=== PATIENT | female | born 1950 | race Caucasian/White ===

== ENCOUNTER 2020-01-25 05:13 | Inpatient (IN) | payer MEDICARE, OTHER ==
[2020-01-16 15:34] LABS: EOSINOPHILS # (AUTO) 0.1 X10'3 (0-0.9); EOSINOPHILS % (AUTO) 2.6 % (0-6); LYMPHOCYTES # (AUTO) 1.4 X10'3 (1.1-4.8); MEAN CORPUSCULAR HEMOGLOBIN 34.2 PG (27.0-31.0); MEAN CORPUSCULAR HGB CONC 35.6 g/dL (33.0-36.5); MEAN CORPUSCULAR VOLUME 96.1 FL (78-98); MEAN PLATELET VOLUME 7.2 FL (7.4-10.4); MONOCYTES # (AUTO) 0.4 X10'3 (0-0.9); MONOCYTES % (AUTO) 8.2 % (2-12); NEUTROPHILS # (AUTO) 2.5 X10'3 (1.8-7.7); NEUTROPHILS % (AUTO) 57.2 % (42-75); PRE OP HEMATOCRIT 43.2 % (35.0-45.0); PRE OP HEMOGLOBIN 15.4 g/dL (12.0-16.0); PRE OP PLATELET COUNT 206 X10'3 (140-440); RED CELL DISTRIBUTION WIDTH 13.2 % (11.5-14.5)
[2020-01-16 15:59] LABS: ALBUMIN 3.7 G/DL (3.4-5.0); ALBUMIN/GLOBULIN RATIO 1.2 (1.1-1.5); ALKALINE PHOSPHATASE 85 IU/L (46-116); BLOOD UREA NITROGEN 13 MG/DL (7-18); BUN/CREATININE RATIO 15.5 (6.6-38.0); CALCIUM 8.6 MG/DL (8.5-10.1); CHLORIDE 106 MMOL/L (99-107); CREATININE 0.84 MG/DL (0.40-0.90); PRE OP ALT 55 U/L (30-65); PRE OP ANION GAP 5 (8-16); PRE OP AST 40 U/L (10-37); PRE OP BILIRUB, TOTAL 1.1 MG/DL (0.0-1.0); PRE OP GLUCOSE 147 MG/DL (70-104); PRE OP SODIUM 144 MMOL/L (135-145); TOTAL CARBON DIOXIDE 33.3 MMOL/L (24-32); TOTAL PROTEIN 6.7 G/DL (6.4-8.2); eGFR 67 ML/MIN
[2020-01-16 16:02] LABS: PRE OP POTASSIUM 3.2 MMOL/L (3.4-5.1)
[2020-01-25] VITALS (17 sets, daily range): BP systolic 107–136; BP diastolic 53–71
[~2020-01-25] VITALS: Ht 157.5 cm; Wt 80.0 kg
[~2020-01-25 05:13] MED LIST: AMLO2.5T2 PO; ASPI-1265 PO; ATEN25TA PO; CALC500T11 PO; CELE-193 PO; CHOL50004 PO; HCTZ25T PO; LEVO75TA PO; MULT-1180 PO; OMEG-133 PO; OMEP20TA5 PO; OXYC-150 PO; PRAM0.5T3 PO; SUVO5TAB PO; TRAZ-251 PO; ringers solution, lacted 1,000 ML IV SCH
[2020-01-25] MEDS ORDERED: tranexamic acid inj. 800 MG in normal saline 100ml IV soln 100 ML IV ONE ×5 (05:30→13:30)
[2020-01-25] MEDS ORDERED: famotidine 20mg tablet PO ONE (05:30)
[2020-01-25] MEDS ORDERED: DOCUMENT DATE & TIME OF BETA-BLOCKER PO ONE (05:30)
[2020-01-25] MEDS ORDERED: cefazolin/dext.iso 2gm/50ml 50 ML IV ONE (05:30)
[2020-01-25] MEDS ORDERED: vancomycin inj 1,500 MG in normal saline 300ml IV soln IV ONE (05:30)
[2020-01-25] MEDS ORDERED: LIDOcaine 1% (10mg/ml) 2ml vial ONE (05:44)
[2020-01-25] MEDS ORDERED: ROPIVAcaine 0.5% (5mg/ml) 30ml vial ONE ×2 (07:12→08:38)
[2020-01-25] MEDS ORDERED: dexamethasone sod phosphate 10mg/ml inj ONE (07:55)
[2020-01-25] MEDS ORDERED: sevoflurane 250ml liquid IH ONE (07:55)
[2020-01-25] MEDS ORDERED: ondansetron/PF 4mg/2ml inj ONE (07:55)
[2020-01-25] MEDS ORDERED: fentaNYL/PF 50MCG/1 ML 2ML syringe ONE (07:56)
[2020-01-25] MEDS ORDERED: midazolam 2 mg/2 ml injection ONE (07:56)
[2020-01-25] MEDS ORDERED: succinylcholine 20mg/ml inj IV ONE (08:38)
[2020-01-25] MEDS ORDERED: LIDOcaine 2% (20mg/ml) 5ml vial ONE (08:38)
[2020-01-25] MEDS ORDERED: propofol inj 20 ML IV ONE (08:38)
[2020-01-25] MEDS ORDERED: ketorolac trometh. 30mg/ml inj. ONE (08:49)
[2020-01-25] MEDS ORDERED: ringers solution, lacted 1,000 ML IV SCH (09:12)
[2020-01-25] MEDS ORDERED: ROPIVAcaine 0.2%/PF PUMP/bolus 550 ML INTERSCALE SCH (09:12)
[2020-01-25] MEDS ORDERED: fentaNYL/PF 50MCG/1 ML 2ML syringe IV PRN ×2 (09:15)
[2020-01-25] MEDS ORDERED: morphine 4 MG/ML inj SYRINge IV PRN (09:15)
[2020-01-25] MEDS ORDERED: hydrALAZINE 20mg/ml inj. IV PRN (09:15)
[2020-01-25] MEDS ORDERED: enalaprilat dihydrate 2.5mg/2ml vial IV PRN (09:15)
[2020-01-25] MEDS ORDERED: morphine 2 MG/ML inj. syringe IV PRN (09:15)
[2020-01-25] MEDS ORDERED: ondansetron/PF 4mg/2ml inj IV PRN ×2 (09:15→10:30)
[2020-01-25] MEDS ORDERED: ROPIVAcaine 0.2% (10 MG/5 ML) BOLUS INJECTION INTERSCALE PRN (09:15)
[2020-01-25] MEDS ORDERED: ePHEDrine 50MG/ML INJ. ONE (09:48)
--- NOTE | 2020-01-25 10:12 | NUR ---
Received from OR via BED , accompanied by Anesthesiologist DR HERNANDEZ and report given by Anesthesiologist. PT AWAKES TO COMMAND. VSS. LEFT SHOULDER DSG CDI WITH SLING AND ICE PRESENT. BLOCK TO NAVID WITH GOOD RADIAL PULSE PRESENT, TRUCK TRAILER FINAL INSPECTOR WNL, UNABLE TO MOVE FINGERS. IV PATENT RIGHT FA #[id number]. SCD'S APPLIED. WARMING MEASURES INITIATED. Addendum: 01/25/20 at 1034 by Cara Noel RN Amended: Links added.
[2020-01-25] MEDS ORDERED: potassium cl 20mEq in 1/2 NS 1,000 ML IV SCH (10:27)
[2020-01-25] MEDS ORDERED: diphenhydrAMINE 25mg capsule PO PRN ×2 (10:30)
[2020-01-25] MEDS ORDERED: HYDROmorphone inj. 0.5 MG/0.5 ML DISP.SYRIN IV PRN (10:30)
[2020-01-25] MEDS ORDERED: acetaminophen 325mg tablet PO PRN (10:30)
[2020-01-25] MEDS ORDERED: oxyCODONE IR 5mg (immed. release) tablet PO PRN (10:30)
[2020-01-25] MEDS ORDERED: magnesium hydroxide 30ml (MOM) UD suspension PO PRN (10:30)
[2020-01-25] MEDS ORDERED: bisacodyl 10mg suppository rectal RC PRN (10:30)
--- NOTE | 2020-01-25 11:02 | NUR ---
Patient in room PAS IN 900. I have received report from Cara in recovery and had the opportunity to ask questions and assume patient care.
--- NOTE | 2020-01-25 11:02 | NUR ---
VSS. DENIES PAIN. LUE BLOCK INTACT WITH STRONG RADIAL PULSES AND INTERNAL CORROSION SPECIALIST WNL. UNABLE TO MOVE LUE AT THIS TIME. ON-Q INITIATED. REPORT GIVEN TO VALDEZ TORRES. PT TRANSPORTED TO [facility] [place] VIA BED WITH PERSONAL BELONGINGS AND FAMILY PRESENT. NR PRESENT TO RECEIVE PT IN . Addendum: 01/25/20 at 1116 by Cara Noel RN Amended: Links added.
[2020-01-25] MEDS: SUVOREXANT PO SCH ×2 (11:10→21:00)
--- NOTE | 2020-01-25 12:02 | NUR ---
Problems reprioritized. Patient report given, questions answered & plan of care reviewed with La.
[2020-01-25] MEDS: pramipexole 0.25mg tablet PO SCH ×2 (13:08→20:09)
[2020-01-25] MEDS: acetaminophen 325mg tablet PO SCH ×2 (13:33→20:07)
[2020-01-25] MEDS: ceFAZolin 1GM/D5W- ADD-VANTAGE 50 ML IV SCH ×2 (16:58→23:58)
[2020-01-25] MEDS ORDERED: vancomycin/NS 1 GM ADD-VANTAGE 250 ML IV SCH (20:00)
[2020-01-25] MEDS: amLODIPine 5mg tablet PO SCH (20:08)
[2020-01-25] MEDS: calcium carbonate 500mg chew tablet PO SCH (20:08)
[2020-01-25] MEDS ORDERED: sennosides 8.6mg tablet PO SCH (21:00)
[2020-01-25] MEDS ORDERED: traZODone 50mg tablet PO SCH (21:00)
[2020-01-25] MEDS: oxyCODONE IR 5mg (immed. release) tablet PO PRN (23:38)
[2020-01-26] MEDS: HYDROmorphone 1 mg/ml syringe IV PRN ×2 (00:30→06:49)
[2020-01-26 02:00] VITALS: BP 124/61
[2020-01-26] MEDS: calcium carbonate 500mg chew tablet PO SCH (02:39)
[2020-01-26] MEDS: acetaminophen 325mg tablet PO SCH ×2 (02:44→08:37)
[2020-01-26] MEDS: oxyCODONE IR 5mg (immed. release) tablet PO PRN ×2 (05:37→09:15)
[2020-01-26 06:10] VITALS: BP 144/71
[2020-01-26 06:30] LABS: BASOPHILS % (AUTO) 0.5 % (0-1); EOSINOPHILS # (AUTO) 0.1 X10'3 (0-0.9); EOSINOPHILS % (AUTO) 1.7 % (0-6); HEMATOCRIT 40.5 % (35.0-45.0); HEMOGLOBIN 14.3 g/dl (12.0-16.0); LYMPHOCYTES # (AUTO) 0.9 X10'3 (1.1-4.8); LYMPHOCYTES % (AUTO) 17.5 % (21-51); MEAN CORPUSCULAR HEMOGLOBIN 34.3 PG (27.0-31.0); MEAN CORPUSCULAR HGB CONC 35.3 g/dL (33.0-36.5); MEAN PLATELET VOLUME 7.6 FL (7.4-10.4); MONOCYTES # (AUTO) 0.4 X10'3 (0-0.9); MONOCYTES % (AUTO) 7.6 % (2-12); NEUTROPHILS # (AUTO) 3.7 X10'3 (1.8-7.7); NEUTROPHILS % (AUTO) 72.7 % (42-75); PLATELET COUNT 164 X10'3 (140-440); RED BLOOD COUNT 4.17 X10'6 (4.20-5.60); RED CELL DISTRIBUTION WIDTH 13.4 % (11.5-14.5); WHITE BLOOD COUNT 5.1 X10'3 (4.5-11.0)
--- NOTE | 2020-01-26 06:40 | NUR ---
Problems reprioritized. Patient report given, questions answered & plan of care reviewed with Jaci TORRES.
--- NOTE | 2020-01-26 06:41 | NUR ---
REPORT TO ADOLPH TORRES
[2020-01-26 06:55] LABS: ANION GAP 9 (8-16); CHLORIDE 109 MMOL/L (99-107); POTASSIUM 3.9 MMOL/L (3.5-5.1); SODIUM 143 MMOL/L (135-145); TOTAL CARBON DIOXIDE 25.4 MMOL/L (24-32)
[2020-01-26] MEDS ORDERED: levoTHYROXINE 100mcg tablet PO SCH (07:00)
[2020-01-26 07:34] VITALS: BP 144/71
--- NOTE | 2020-01-26 07:36 | NUR ---
I received from from Ashley TORRES
[2020-01-26] MEDS ORDERED: atenolol 25mg tablet PO SCH (08:00)
[2020-01-26] MEDS ORDERED: FISH OIL PO SCH (08:00)
[2020-01-26] MEDS ORDERED: EPA PO SCH (08:00)
[2020-01-26] MEDS ORDERED: OMEGA PO SCH (08:00)
[2020-01-26] MEDS ORDERED: multivitamins, therapeutics tablet PO SCH (08:00)
[2020-01-26] MEDS ORDERED: celeCOXIB 100mg capsule PO SCH (08:00)
[2020-01-26] MEDS ORDERED: HYDROchlorothiazide 25mg tablet PO SCH (08:00)
[2020-01-26] MEDS ORDERED: pantoprazole 40mg Tablet.DR PO SCH (08:00)
[2020-01-26] MEDS ORDERED: aspirin 81mg tab.chew PO SCH (08:00)
[2020-01-26] MEDS ORDERED: DHA PO SCH (08:00)
[2020-01-26] MEDS ORDERED: aspirin 325mg tablet PO SCH (08:30)
[2020-01-26] MEDS: pramipexole 0.25mg tablet PO SCH (08:34)
[2020-01-26] MEDS: amLODIPine 5mg tablet PO SCH (08:37)
[2020-01-26] MEDS ORDERED: calcium carbonate 500mg chew tablet PO SCH (08:45)
[2020-01-26 09:48] VITALS: BP 159/78
[2020-01-27] MEDS ORDERED: acetaminophen 325mg tablet PO PRN (10:30)
== END 2020-01-26 13:30 | disposition home or self-care (01) | DRG 483 ==
LOC: PAS IN 05:13 → UNDOADMIN 05:13 → EDSTATUS 08:45 → PAS IN 10:27 → ORTHO 4S 11:05 → UNDODISIN 01-26 13:30
PROVIDERS: ADMIT Orthopaedic Surgery; ATTEND Orthopaedic Surgery
PROC: 0LS40ZZ Reposition Left Upper Arm Tendon, Open Approach (ICD-10-PCS; 2020-01-25)
PROC: 3E0T3BZ Introduction of Anesthetic Agent into Peripheral Nerves and Plexi, Percutaneous Approach (ICD-10-PCS; 2020-01-25)
PROC: 0RRK00Z Replacement of Left Shoulder Joint with Reverse Ball and Socket Synthetic Substitute, Open Approach (ICD-10-PCS; principal; 2020-01-25 07:55)
DX: M75.122 Complete rotator cuff tear or rupture of left shoulder, not specified as traumatic (principal); M19.012 Primary osteoarthritis, left shoulder; K21.9 Gastro-esophageal reflux disease without esophagitis; E03.9 Hypothyroidism, unspecified; I25.10 Atherosclerotic heart disease of native coronary artery without angina pectoris; E66.9 Obesity, unspecified; I10 Essential (primary) hypertension; M65.812 Other synovitis and tenosynovitis, left shoulder; Z87.891 Personal history of nicotine dependence; Z72.89 Other problems related to lifestyle; Z68.32 Body mass index [BMI] 32.0-32.9, adult; Z79.899 Other long term (current) drug therapy; Z79.82 Long term (current) use of aspirin
CPT/HCPCS: 36415; 71046; 80051; 80053; 82948; 84443; 85025; 87081; 97116; 97161; 97530; A4215; A4565; A4618; A7000; C1776; G0378; J0330; J0690; J1100; J1170; J1885; J2001; J2250; J2405; J2704; J2795; J3010; J3370; J3480; J7120; Q0163

== ENCOUNTER 2022-12-15 12:48 | Day surgery (SDC) | payer MEDICARE, BC ==
[2022-12-15] VITALS (11 sets, daily range): BP systolic 109–156; BP diastolic 49–91
[~2022-12-15] VITALS: Ht 157.5 cm; Wt 75.3 kg
[~2022-12-15 12:48] MED LIST changes: -HCTZ25T PO; +HYDR25TA5 PO; +OMEP20TA43 PO; -OMEP20TA5 PO; -ringers solution, lacted 1,000 ML IV SCH
[2022-12-15] MEDS ORDERED: diphenhydrAMINE 25mg capsule PO PRN (13:10)
[2022-12-15] MEDS ORDERED: LORazepam 0.5 MG tablet PO PRN (13:10)
[2022-12-15] MEDS ORDERED: nitroGLYCERIN 0.4mg SUBLingual tab SL PRN (13:10)
[2022-12-15] MEDS ORDERED: normal saline 1,000 ML IV SCH (13:10)
[2022-12-15] MEDS ORDERED: fentaNYL/PF 50MCG/1 ML 2ML syringe ONE ×2 (13:12→14:16)
[2022-12-15] MEDS ORDERED: midazolam 1 mg/ML 2ml injection ONE ×2 (13:12→14:12)
[2022-12-15] MEDS ORDERED: iohexol 350 MG/ML 50ML vial IV ONE (13:12)
[2022-12-15] MEDS ORDERED: iohexol 350MG/ML 100ml bottle IV ONE (13:12)
[2022-12-15] MEDS ORDERED: LIDOcaine 1% 30ml preserv. free vial ONE (13:12)
[2022-12-15] MEDS ORDERED: TRIA1CAP88 PO (13:24)
[2022-12-15] MEDS ORDERED: LEVO112T52 PO (13:24)
[2022-12-15] MEDS ORDERED: CHOL50004 PO (13:24)
[2022-12-15] MEDS ORDERED: VITA1CAP (13:27)
[2022-12-15] MEDS ORDERED: DOCU100C59 PO (13:27)
[2022-12-15] MEDS ORDERED: MAGN400C PO (13:27)
[2022-12-15] MEDS ORDERED: NITR0.4T48 SL (13:27)
[2022-12-15 14:24] LABS: ANION GAP 5 (8-16); BASOPHILS % (AUTO) 0.7 % (0-1); BLOOD UREA NITROGEN 15 MG/DL (7-18); BUN/CREATININE RATIO 17.4 (6.6-38.0); CALCIUM 8.6 MG/DL (8.5-10.1); CHLORIDE 102 MMOL/L (99-107); CREATININE 0.86 MG/DL (0.40-0.90); EOSINOPHILS % (AUTO) 0.2 % (0-6); GLUCOSE 103 MG/DL (70-104); HEMATOCRIT 44.1 % (35.0-45.0); HEMOGLOBIN 15.7 g/dl (12.0-16.0); LYMPHOCYTES # (AUTO) 1.7 X10'3 (1.1-4.8); LYMPHOCYTES % (AUTO) 38.9 % (21-51); MEAN CORPUSCULAR HEMOGLOBIN 36.1 PG (27.0-31.0); MEAN CORPUSCULAR HGB CONC 35.7 g/dL (33.0-36.5); MEAN CORPUSCULAR VOLUME 101.1 FL (78-98); MEAN PLATELET VOLUME 7.3 FL (7.4-10.4); MONOCYTES # (AUTO) 0.3 X10'3 (0-0.9); NEUTROPHILS # (AUTO) 2.3 X10'3 (1.8-7.7); NEUTROPHILS % (AUTO) 53.2 % (42-75); PLATELET COUNT 186 X10'3 (140-440); POTASSIUM 3.3 MMOL/L (3.5-5.1); RED BLOOD COUNT 4.36 X10'6 (4.20-5.60); RED CELL DISTRIBUTION WIDTH 12.5 % (11.5-14.5); SODIUM 140 MMOL/L (135-145); TOTAL CARBON DIOXIDE 32.7 MMOL/L (24-32); WHITE BLOOD COUNT 4.4 X10'3 (4.5-11.0); eGFR 65 ML/MIN
[2022-12-15 14:27] LABS: APTT 29 SECONDS (22-32)
[2022-12-15] MEDS ORDERED: HYDROcodone/acetaminophen 10/325mg tab PO PRN (15:25)
[2022-12-15] MEDS ORDERED: proCHLORperazine 10 MG/2 ml inj IV PRN (15:25)
[2022-12-15] MEDS ORDERED: HYDROcodone/acetaminophen 5mg/325mg tablet PO PRN (15:25)
[2022-12-15] MEDS ORDERED: OXAZEpam 15mg capsule PO PRN (15:25)
[2022-12-15] MEDS ORDERED: ondansetron/PF 4mg/2ml inj IV PRN (15:25)
[2022-12-15 16:15] LABS: ANISOCYTOSIS FEW; PLATELET ESTIMATE NORMAL; SPHEROCYTES FEW
== END 2022-12-15 20:15 | disposition home or self-care (01) ==
LOC: SSTAY O 12:48
PROVIDERS: ATTEND Internal Medicine Cardiovascular Disease
DX: R94.39 Abnormal result of other cardiovascular function study (principal); I25.10 Atherosclerotic heart disease of native coronary artery without angina pectoris; I10 Essential (primary) hypertension; E78.5 Hyperlipidemia, unspecified; K21.9 Gastro-esophageal reflux disease without esophagitis; G47.33 Obstructive sleep apnea (adult) (pediatric); J44.9 Chronic obstructive pulmonary disease, unspecified; F41.1 Generalized anxiety disorder; G89.4 Chronic pain syndrome; E66.9 Obesity, unspecified; Z68.30 Body mass index [BMI] 30.0-30.9, adult; Z88.8 Allergy status to other drugs, medicaments and biological substances; Z95.5 Presence of coronary angioplasty implant and graft; Z90.710 Acquired absence of both cervix and uterus; Z98.890 Other specified postprocedural states; Z87.891 Personal history of nicotine dependence; Z79.01 Long term (current) use of anticoagulants
CPT/HCPCS: 36415; 71046; 80048; 85025; 85610; 85730; 93458; 99152; 99153; C1760; C1769; J1644; J2250; J3010; J3490; J7030; Q0163; Q9967; 85008; A6258; A6449

== ENCOUNTER 2024-09-12 11:55 | Day surgery (SDC) | payer MEDICARE, BC ==
[~2024-09-12] VITALS: Ht 157.5 cm; Wt 69.2 kg
[2024-09-12] VITALS (10 sets, daily range): BP systolic 112–144; BP diastolic 56–77; PULSE 71–83; RESP 10–12; TEMP 98.2; O2SAT 94–100
[~2024-09-12 11:55] MED LIST changes: -AMLO2.5T2 PO; -ASPI-1265 PO; +ASPI81TA52 PO; -ATEN25TA PO; +ATOR20TA66 PO; -CALC500T11 PO; -CELE-193 PO; -CHOL50004 PO; +CLOP75TA34 PO; -HYDR25TA5 PO; +LEVO112T52 PO; -LEVO75TA PO; +METO-395 PO; +MORP15TA60 PO; -MULT-1180 PO; +NITR0.4T48 SL; -OMEG-133 PO; -OMEP20TA43 PO; -OXYC-150 PO; -SUVO5TAB PO; +VALS1TAB73 PO
[2024-09-12] MEDS ORDERED: nitroGLYCERIN 0.4mg SUBLingual tab SL PRN (12:15)
[2024-09-12] MEDS ORDERED: CLOP75TA33 PO (12:52)
[2024-09-12] MEDS ORDERED: PANT40TA54 PO (12:52)
[2024-09-12] MEDS ORDERED: ASPI-611 PO (12:52)
[2024-09-12] MEDS ORDERED: MV-M1CAP18 PO (12:52)
[2024-09-12] MEDS ORDERED: VALS1TAB76 PO (12:52)
[2024-09-12] MEDS ORDERED: AMLO5TAB16 PO (12:52)
[2024-09-12] MEDS ORDERED: OXYC10TA47 PO (12:52)
[2024-09-12] MEDS: LORazepam 0.5 MG tablet PO PRN (13:09)
[2024-09-12] MEDS: normal saline 1,000 ML IV SCH (13:09)
[2024-09-12] MEDS: diphenhydrAMINE 25mg capsule PO PRN (13:09)
[2024-09-12] MEDS ORDERED: iohexol 350 MG/ML 50ML vial IV ONE (13:11)
[2024-09-12] MEDS ORDERED: fentaNYL/PF 50MCG/1 ML 2ML syringe ONE ×2 (13:11→14:18)
[2024-09-12] MEDS ORDERED: iohexol 350MG/ML 100ml bottle IV ONE (13:11)
[2024-09-12] MEDS ORDERED: LIDOcaine 1% 30ml preserv. free vial ONE (13:11)
[2024-09-12] MEDS ORDERED: midazolam 1 mg/ML 2ml injection ONE ×2 (13:11→13:54)
[2024-09-12 13:12] LABS: EOSINOPHILS % (AUTO) 0.1 % (0-6); HEMATOCRIT 43.2 % (35.0-45.0); HEMOGLOBIN 15.3 g/dl (12.0-16.0); LYMPHOCYTES # (AUTO) 1.3 X10'3 (1.1-4.8); LYMPHOCYTES % (AUTO) 29.7 % (21-51); MEAN CORPUSCULAR HEMOGLOBIN 35.1 PG (27.0-31.0); MEAN CORPUSCULAR HGB CONC 35.4 g/dL (33.0-36.5); MEAN CORPUSCULAR VOLUME 99.1 FL (78-98); MEAN PLATELET VOLUME 6.8 FL (7.4-10.4); MONOCYTES # (AUTO) 0.5 X10'3 (0-0.9); MONOCYTES % (AUTO) 10.7 % (2-12); NEUTROPHILS # (AUTO) 2.5 X10'3 (1.8-7.7); NEUTROPHILS % (AUTO) 58.5 % (42-75); PLATELET COUNT 224 X10'3 (140-440); RED BLOOD COUNT 4.36 X10'6 (4.20-5.60); RED CELL DISTRIBUTION WIDTH 12.6 % (11.5-14.5); WHITE BLOOD COUNT 4.2 X10'3 (4.5-11.0)
[2024-09-12 13:43] LABS: ALBUMIN 3.3 G/DL (3.4-5.0); ANION GAP 5 (8-16); BLOOD UREA NITROGEN 13 MG/DL (7-18); BUN/CREATININE RATIO 14.9 (10.0-20.0); CALCIUM 8.6 MG/DL (8.5-10.1); CHLORIDE 100 MMOL/L (99-107); CREATININE 0.87 MG/DL (0.40-0.90); GLUCOSE 106 MG/DL (70-104); POTASSIUM 3.3 MMOL/L (3.5-5.1); PRO BRAIN NATRIURETIC PEPTIDE 61 PG/ML (0-450); SODIUM 136 MMOL/L (135-145); TOTAL CARBON DIOXIDE 31.2 MMOL/L (24-32); eCRCL 44 ML/MIN; eGFR 63 ML/MIN
[2024-09-12 13:56] LABS: APTT 25 SECONDS (22-32); PROTHROMBIN TIME 10.6 SECONDS (9.0-12.0)
[2024-09-12] MEDS ORDERED: HYDROcodone/acetaminophen 10/325mg tab PO PRN (15:25)
[2024-09-12] MEDS ORDERED: ondansetron/PF 4mg/2ml inj IV PRN (15:25)
[2024-09-12] MEDS ORDERED: OXAZEpam 15mg capsule PO PRN (15:25)
[2024-09-12] MEDS ORDERED: proCHLORperazine 10 MG/2 ml inj IV PRN (15:25)
[2024-09-12] MEDS ORDERED: HYDROcodone/acetaminophen 5mg/325mg tablet PO PRN (15:25)
[2024-09-12] MEDS: pramipexole 0.25mg tablet PO ONE (16:07)
[2024-09-12] MEDS: HYDROmorphone 1 mg/ml syringe IV PRN (16:14)
== END 2024-09-12 19:50 | disposition home or self-care (01) ==
LOC: SSTAY O 11:55
PROVIDERS: ATTEND Internal Medicine Cardiovascular Disease
DX: T82.855A Stenosis of coronary artery stent, initial encounter (principal); I25.10 Atherosclerotic heart disease of native coronary artery without angina pectoris; I25.2 Old myocardial infarction; E89.0 Postprocedural hypothyroidism; Y83.8 Other surgical procedures as the cause of abnormal reaction of the patient, or of later complication, without mention of misadventure at the time of the procedure; Y92.89 Other specified places as the place of occurrence of the external cause
CPT/HCPCS: 36415; 71046; 80048; 83880; 84484; 85025; 85610; 85730; 93005; 93458; 93567; 99152; 99153; A4314; A4615; A6258; A6402; C1760; J1171; J1644; J2001; J2250; J3010; J7030; Q0163; Q9967; Z7610; A6449; J3490

== ENCOUNTER 2024-12-04 11:28 | Outpatient (CLI) | payer MEDICARE, BC ==
[~2024-12-04 11:28] MED LIST changes: +AMLO5TAB16 PO; +ASPI-611 PO; -ASPI81TA52 PO; -ATOR20TA66 PO; +CLOP75TA33 PO; -CLOP75TA34 PO; -METO-395 PO; -MORP15TA60 PO; +MV-M1CAP18 PO; -NITR0.4T48 SL; +OXYC10TA47 PO; +PANT40TA54 PO; -VALS1TAB73 PO; +VALS1TAB76 PO
== END 2024-12-04 23:59 | disposition home or self-care (01) ==
LOC: RAD 11:28
PROVIDERS: ATTEND Thoracic Surgery (Cardiothoracic Vascular Surgery)
DX: J90 Pleural effusion, not elsewhere classified (principal); Z96.653 Presence of artificial knee joint, bilateral
CPT/HCPCS: 71046